=== PATIENT | female | born 1945 | race Caucasian/White ===

== ENCOUNTER → 2016-11-14 | Outpatient (CLI) | payer MEDICARE, OTHER | LOC: GMAM 14:36 | PROVIDERS: ATTEND Family Medicine | DX: R94.5 Abnormal results of liver function studies (principal) ==

== ENCOUNTER → 2016-11-22 | Outpatient (CLI) | payer MEDICARE, OTHER ==
--- NOTE | 2016-11-22 11:57 | US ---
EXAM DESCRIPTION: Gallbladder ultrasound. CLINICAL HISTORY: Abdominal pain. COMPARISON: None. TECHNIQUE: Real-time grayscale images was performed by a orthopaedic technologist. Claims Correspondence Clerk static images have been submitted for review. FINDINGS: Liver: Echogenicity suggests fatty infiltration and/or chronic hepatocellular disease. No suspicious lesion or surface nodularity. Biliary: No gallstones, gallbladder wall thickening, or sonographic Servin's sign. There is no biliary duct dilation. Mid common bile duct measures 4 mm in diameter. Pancreas: No focal lesion. However, certain portions are obscured by overlying bowel gas and unable to be evaluated. IMPRESSION The liver is echogenic. This can be seen in setting of fatty infiltration or hepatocellular disease. No cholelithiasis or cholecystitis. Electronically signed by: Sergio Pringle MD 11/22/2016 11:55
== END ==
LOC: US 09:12
PROVIDERS: ATTEND Family Medicine
DX: R94.5 Abnormal results of liver function studies (principal)

== ENCOUNTER → 2016-11-27 | Outpatient (CLI) | payer MEDICARE, OTHER | LOC: GMAM 14:44 | PROVIDERS: ATTEND Family Medicine | DX: R94.5 Abnormal results of liver function studies (principal); K76.0 Fatty (change of) liver, not elsewhere classified ==

== ENCOUNTER → 2017-01-10 | Outpatient (CLI) | payer MEDICARE, OTHER | END | disposition home or self-care (01) | LOC: GMAM 15:06 | PROVIDERS: ATTEND Family Medicine | DX: R79.9 Abnormal finding of blood chemistry, unspecified (principal) ==

== ENCOUNTER → 2019-07-16 | Outpatient (CLI) | payer MEDICARE, OTHER ==
--- NOTE | 2019-07-17 08:04 | US ---
EXAM DESCRIPTION: Liver: ULTRASOUND. CLINICAL HISTORY: ABNORMAL LIVER FUNCTION COMPARISON: None. TECHNIQUE: Transabdominal scannin-dimensional and Doppler modes. FINDINGS: Gallbladder: normal size, shape, echogenicity; no intraluminal stones or sludge. No fluid around the gallbladder. No wall thickening. 2.1 mm. Non-tender with transducer pressure. Common bile duct: caliber 3.5 mm within normal limits. Liver: Increased echogenicity; contour liver capsule smooth where seen. No fluid around the liver. Intrahepatic biliary ducts normal caliber. Doppler hepatopedal flow portal vein. 6 mm. Long axis right lobe 13.0 cm. Pancreas: Echogenic and limited visualization. Duct not seen. Right kidney: long axis measures 10.2 cm. Normal cortical echogenicity. Normal cortical thickness. Minimal capsular lobulation. No hydronephrosis. IMPRESSION: 1. Minimal steatosis of the liver normal size and normal vascular flow and ducts caliber. Smooth capsule with no ascites. 2. Normal gallbladder and common bile ducts. Fatty pancreas. Duct not seen. 3. Normal size of the kidney with no stones or hydronephrosis. Minimal capsular lobulation related to aging.. Electronically signed by: Javon Bello MD 07/17/2019 8:03 AM CDT
== END ==
LOC: US 08:05
PROVIDERS: ATTEND Family Medicine
DX: R94.5 Abnormal results of liver function studies (principal); K76.0 Fatty (change of) liver, not elsewhere classified